=== PATIENT | female | born 1955 | race Caucasian/White ===

== ENCOUNTER → 2016-09-02 | Outpatient (CLI) | payer OTHER ==
[~2016-09-02] MED LIST: ALEVE 220MG220 MG PO; ANTI-DIARRHEAL2 MG PO; BUMEX 1MG TA1 MG/TA1 PO; CENTRUM SILVER1 TA1 PO; CLARITIN 1010 MG/TAB PO; CLARITIN10 MG PO; CLONAZEPAM0.5 MG PO; COUMADIN; CULTURELLE CAP1 EAC1 PO; DETROL LA 2 MG2 MG PO; DETROL LA4 MG PO; DILAUDID 2MG TAB2 MG PO; Detrol LA PO; FLEXERIL10 MG PO; FLEXERIL5 MG PO; HYDROCODONE BIT1 TA8 PO; IMODIUM2 MG PO; KLONOPIN 0.5MG0.5 MG PO; KLOR-CON SPRIN10 MEQ PO; LASIX 20MG TABL20 MG PO; LEXAPRO 10MG10 MG PO; LEXAPRO10 MG PO; LOPERAMIDE HCL2 MG PO; LORATADINE10 MG PO; LORTAB 7.5/5001 TAB; LYRICA; MACROBID 1100 MG/CAP PO; MS CONTIN 115 MG/TAB PO; MULTIPLE VITAMI1 CAP PO; NATURE'S BLE1000 MCG PO; NEXIUM40 MG PO; OXECTA5 MG PO; OXYCODONE5 M1 PO; OXYCONTIN10 MG PO; PEPCID 20MG TAB20 MG PO; PERCR 7.5 PO; PREMARIN .3MG0.3 MG PO; PREMARIN 1.251.25 MG PO; PREMARIN VAG42.5 GM VG; PRILOSEC20 MG PO; PYRIDIUM200 M1 PO; RECLAST5 MG/100 M IV.SOLN; SEE INSTRUCTIONS IT; SEREVENT IH; SEREVENT21 MCG/ACT IH; SINGULAIR 110 MG/TAB PO; SINGULAIR10 MG PO; SOMA350 MG PO; VITAMIN C BUFF500 MG PO; VITAMIN C500 MG PO; VITAMIN D 400400 IU PO; VITAMIN D PO; VITAMIN D5000 IU PO; XALATAN EYE DROPS OU; ZANTAC 150150 MG PO; ZANTAC 7575 MG PO; ZOFRAN 4MG T4 MG/TAB PO; [UNRECOGNIZED DRUG - CODE] IV; [UNRECOGNIZED DRUG - SUPPLY]
== END ==
LOC: MHCPAIN 07:49
DX: G89.29 Other chronic pain (principal); M47.817 Spondylosis without myelopathy or radiculopathy, lumbosacral region; M47.812 Spondylosis without myelopathy or radiculopathy, cervical region; M54.12 Radiculopathy, cervical region; M25.562 Pain in left knee; M25.561 Pain in right knee
CPT/HCPCS: G0463

== ENCOUNTER → 2016-10-03 | Outpatient (CLI) | payer OTHER | LOC: MHCPAIN 09:02 | DX: G89.29 Other chronic pain (principal); M50.90 Cervical disc disorder, unspecified, unspecified cervical region; M54.12 Radiculopathy, cervical region; M25.561 Pain in right knee; M25.562 Pain in left knee | CPT/HCPCS: G0463 ==

== ENCOUNTER → 2016-11-14 | Outpatient (CLI) | payer OTHER | LOC: COL.RAD 12:33 | DX: Z01.89 Encounter for other specified special examinations (principal) ==

== ENCOUNTER 2016-11-19 10:23 | Outpatient (RCR) | payer OTHER | END 2017-02-17 | LOC: MKS.ESL.PT | DX: S39.012A Strain of muscle, fascia and tendon of lower back, initial encounter (principal); R26.9 Unspecified abnormalities of gait and mobility; M17.0 Bilateral primary osteoarthritis of knee; Z96.653 Presence of artificial knee joint, bilateral ==

== ENCOUNTER → 2017-01-26 | Outpatient (CLI) | payer OTHER | LOC: MC.RAD 07:55 | DX: Z12.31 Encounter for screening mammogram for malignant neoplasm of breast (principal); Z98.890 Other specified postprocedural states ==

== ENCOUNTER 2017-04-09 12:30 | Outpatient (RCR) | payer OTHER | END 2017-04-13 14:08 | disposition home or self-care (01) | LOC: WSOT 12:30 | DX: Z47.89 Encounter for other orthopedic aftercare (principal); M25.841 Other specified joint disorders, right hand ==

== ENCOUNTER 2018-02-10 12:45 | Outpatient (RCR) | payer OTHER | END 2018-04-11 | disposition home or self-care (01) | LOC: WSST | DX: R41.3 Other amnesia (principal); F01.50 Vascular dementia, unspecified severity, without behavioral disturbance, psychotic disturbance, mood disturbance, and anxiety ==

== ENCOUNTER → 2018-02-18 | Outpatient (CLI) | payer OTHER | LOC: MC.RAD 07:48 | DX: Z12.31 Encounter for screening mammogram for malignant neoplasm of breast (principal) ==

== ENCOUNTER → 2019-04-15 | Outpatient (CLI) | payer BC | LOC: MC.RAD 07:08 | DX: Z12.31 Encounter for screening mammogram for malignant neoplasm of breast (principal) ==

== ENCOUNTER 2019-05-18 17:56 | Emergency (ER) | payer BC ==
[~2019-05-18] VITALS: Ht 162.6 cm; Wt 76.8 kg
[2019-05-18] MEDS ORDERED: PREMARIN0.45 MG PO (18:12)
[2019-05-18 18:13] VITALS: BP 131/62; PULSE 63; TEMP 98.1
[2019-05-18] MEDS ORDERED: PERCOCET 325 MG1 TA3 PO (18:13)
== END 2019-05-18 20:25 | disposition home or self-care (01) ==
LOC: COL.ER 17:56
DX: I80.01 Phlebitis and thrombophlebitis of superficial vessels of right lower extremity (principal); Z87.891 Personal history of nicotine dependence

== ENCOUNTER → 2019-10-27 | Outpatient (CLI) | payer BC ==
[~2019-10-27] MED LIST changes: +PERCOCET 325 MG1 TA3 PO; +PREMARIN0.45 MG PO
== END ==
LOC: MC.RAD 08:53
DX: N63.20 Unspecified lump in the left breast, unspecified quadrant (principal)

== ENCOUNTER → 2020-04-12 | Outpatient (CLI) | payer BC | LOC: COL.VAS 11:49 | DX: H53.9 Unspecified visual disturbance (principal) ==

== ENCOUNTER → 2020-05-24 | Outpatient (CLI) | payer MEDICARE | LOC: MC.RAD 07:53 | DX: Z12.31 Encounter for screening mammogram for malignant neoplasm of breast (principal) ==

== ENCOUNTER 2020-08-11 07:24 | Emergency (ER) | payer MEDICARE ==
[~2020-08-11] VITALS: Ht 170.2 cm; Wt 75.0 kg
[2020-08-11 07:30] VITALS: TEMP 97.8
[2020-08-11 07:57] LABS: BASO # 0.1 (0.0-0.2); BASO % 1.1 % (0.0-2.0); EOS # 0.2 (0.0-0.7); EOS % 2.5 % (0-4.0); GRAN # 6.4 (1.4-6.5); GRAN % 69.6 % (42.2-75.2); HEMATOCRIT 42.5 % (37.0-47.0); HEMOGLOBIN 13.4 g/dl (12.5-16.0); LYMPH # 1.8 (1.2-3.4); LYMPH % 19.5 % (20.0-51.0); MEAN CELL VOLUME 89 fl (80.0-100.0); MEAN CORPUSCULAR HEMOGLOBIN 28 pg (27.0-31.0); MEAN CORPUSCULAR HGB CONC 32 g/dl (33.0-37.0); MEAN PLATELET VOLUME 9.5 fl (7.4-10.4); MONO # 0.7 (0.1-0.6); PLATELET COUNT 283 K/mm3 (130-400); RED BLOOD COUNT 4.77 M/mm3 (4.10-5.30)
[2020-08-11 08:00] LABS: ALANINE AMINOTRANSFERASE 14 U/L (4-34); ALBUMIN 4.3 gm/dL (3.5-5.0); ALKALINE PHOSPHATASE 102 U/L (50-136); ANION GAP 7 mmol/L (7-16); AST,SGOT 30 U/L (15-37); BILIRUBIN,TOTAL 0.2 mg/dL (0.0-1.0); BLOOD UREA NITROGEN 20 mg/dL (7-17); CALCIUM 9.4 mg/dL (8.4-10.2); CARBON DIOXIDE 30 mmol/L (22-30); CHLORIDE 104 mmol/L (98-107); CREATININE, serum 0.91 (0.52-1.25); GLUCOSE 97 mg/dL (74-106); POTASSIUM 4.1 mmol/L (3.4-5.0); SODIUM 141 mmol/L (137-145)
[2020-08-11 08:11] LABS: TROPONIN-I < 0.012 ng/mL (0.000-0.035)
[2020-08-11 08:44] VITALS: BP 159/83; PULSE 54
== END 2020-08-11 08:44 | disposition home or self-care (01) ==
LOC: COL.ER 07:24
PROVIDERS: Emergency Medicine
DX: R07.89 Other chest pain (principal); R51.9 Headache, unspecified; R06.00 Dyspnea, unspecified; Z87.891 Personal history of nicotine dependence; Z88.2 Allergy status to sulfonamides; Z88.6 Allergy status to analgesic agent
CPT/HCPCS: J7030

== ENCOUNTER 2020-09-13 06:48 | Day surgery (SDC) | payer MEDICARE ==
[2020-09-13] VITALS (9 sets, daily range): BP systolic 134–166; BP diastolic 67–79; PULSE 54–69; TEMP 97.4
[~2020-09-13] VITALS: Ht 170.2 cm; Wt 75.1 kg
[2020-09-13 07:38] LABS: PROTHROMBIN TIME 11.4 SECONDS (9.7-12.8)
[2020-09-13 07:40] LABS: HEMATOCRIT 39.6 % (37.0-47.0); HEMOGLOBIN 12.5 g/dl (12.5-16.0); MEAN CELL VOLUME 88 fl (80.0-100.0); MEAN CORPUSCULAR HEMOGLOBIN 28 pg (27.0-31.0); MEAN CORPUSCULAR HGB CONC 32 g/dl (33.0-37.0); MEAN PLATELET VOLUME 9.4 fl (7.4-10.4); PLATELET COUNT 241 K/mm3 (130-400); REDCELL DISTRIBUTION WIDTH-CV 13.1 % (11.5-14.5)
[2020-09-13 07:41] LABS: PARTIAL THROMBOPLASTIN TIME 36.4 SECONDS (26.0-37.0)
[2020-09-13 07:45] LABS: CALCIUM 9.2 mg/dL (8.4-10.2); POTASSIUM 3.9 mmol/L (3.4-5.0)
[2020-09-13] MEDS ORDERED: CLARITIN 1010 MG/TAB PO (08:29)
[2020-09-13] MEDS ORDERED: PROBIOTIC ACID1 EAC3 PO (08:31)
[2020-09-13] MEDS ORDERED: ZOFRAN 4MG T4 MG/TAB PO (08:31)
[2020-09-13] MEDS ORDERED: PREVACID 15MG15 M1 PO (08:31)
[2020-09-13] MEDS ORDERED: SYSTANE 0.4%-0.1 SOL OP (08:32)
[2020-09-13] MEDS ORDERED: TRIAMCINOLONE A15 G3 TP (08:34)
--- NOTE | 2020-09-13 09:05 | NUR ---
Pt to procedure,report to Jihan French.
[2020-09-13] MEDS ORDERED: IMODIUM 2MG CAPS2 MG PO (09:46)
--- NOTE | 2020-09-13 13:30 | NUR ---
Discharge instructions given to pt.ptverbalizes understanding.INT removed,catheter tip intact.Dressing to right wrist observed clean,dry,intact,soft to touch.Pt escorted out via wheelchair by this nurse.
== END 2020-09-13 13:36 | disposition home or self-care (01) ==
LOC: COL.CAR 06:48
PROVIDERS: Internal Medicine Cardiovascular Disease
DX: I25.10 Atherosclerotic heart disease of native coronary artery without angina pectoris (principal); I08.1 Rheumatic disorders of both mitral and tricuspid valves; I27.20 Pulmonary hypertension, unspecified; I12.9 Hypertensive chronic kidney disease with stage 1 through stage 4 chronic kidney disease, or unspecified chronic kidney disease; N18.30 Chronic kidney disease, stage 3 unspecified; I42.9 Cardiomyopathy, unspecified; G89.4 Chronic pain syndrome; K21.9 Gastro-esophageal reflux disease without esophagitis; M16.10 Unilateral primary osteoarthritis, unspecified hip; Z79.899 Other long term (current) drug therapy; Z87.891 Personal history of nicotine dependence
CPT/HCPCS: C1769; C1887; J0153; J1200; J1644; J2250; J2930; J3010; Q9967

== ENCOUNTER → 2021-01-01 | Outpatient (CLI) | payer MEDICARE ==
[~2021-01-01] MED LIST changes: +IMODIUM 2MG CAPS2 MG PO; +PREVACID 15MG15 M1 PO; +PROBIOTIC ACID1 EAC3 PO; +SYSTANE 0.4%-0.1 SOL OP; +TRIAMCINOLONE A15 G3 TP
== END ==
LOC: COL.RAD 12:18
DX: H93.11 Tinnitus, right ear (principal); I10 Essential (primary) hypertension; E04.1 Nontoxic single thyroid nodule
CPT/HCPCS: Q9967

== ENCOUNTER → 2021-02-01 | Outpatient (CLI) | payer MEDICARE | LOC: COL.PUL 11:43 | DX: E04.1 Nontoxic single thyroid nodule (principal); R06.02 Shortness of breath; Z87.891 Personal history of nicotine dependence | CPT/HCPCS: J7674 ==

== ENCOUNTER → 2021-06-14 | Outpatient (CLI) | payer MEDICARE | LOC: MC.RAD 07:38 | DX: Z12.31 Encounter for screening mammogram for malignant neoplasm of breast (principal) ==

== ENCOUNTER → 2021-11-21 | Outpatient (CLI) | payer MEDICARE | LOC: COL.RAD 11-18 13:30 | DX: E04.1 Nontoxic single thyroid nodule (principal) ==

== ENCOUNTER → 2022-06-26 | Outpatient (CLI) | payer MEDICARE | LOC: MHCPAIN 12:58 | DX: M54.50 Low back pain, unspecified (principal); M25.551 Pain in right hip; M25.552 Pain in left hip; M54.6 Pain in thoracic spine; M25.562 Pain in left knee; M25.561 Pain in right knee | CPT/HCPCS: G0463 ==

== ENCOUNTER → 2022-06-26 | Outpatient (CLI) | payer MEDICARE | LOC: COL.RAD 14:32 | DX: M51.35 Other intervertebral disc degeneration, thoracolumbar region (principal); M51.36 Other intervertebral disc degeneration, lumbar region; M47.816 Spondylosis without myelopathy or radiculopathy, lumbar region ==

== ENCOUNTER → 2022-07-10 | Outpatient (CLI) | payer MEDICARE | LOC: MC.RAD 07:51 | DX: Z12.31 Encounter for screening mammogram for malignant neoplasm of breast (principal) ==

== ENCOUNTER 2022-07-18 07:23 | Day surgery (SDC) | payer MEDICARE ==
[~2022-07-18] VITALS: Ht 170.2 cm; Wt 73.2 kg
[~2022-07-18 07:23] MED LIST changes: -MULTIPLE VITAMI1 CAP PO; +MULTIPLE VITAMI1 TA5 PO
[2022-07-18 07:55] VITALS: BP 105/52; PULSE 46; TEMP 97.9
[2022-07-18] MEDS ORDERED: LIPITOR 40MG TA40 MG PO (08:00)
[2022-07-18] MEDS ORDERED: NORVASC 5MG5 MG/TAB PO (08:00)
[2022-07-18] MEDS ORDERED: BETAMETHASONE D15 G1 TP (08:01)
[2022-07-18] MEDS ORDERED: TOPROL XL 25MG25 MG PO (08:05)
[2022-07-18] MEDS ORDERED: ASPIRIN 81M81 MG/TA2 PO (08:14)
[2022-07-18 09:47] VITALS: BP 116/61; PULSE 63
--- NOTE | 2022-07-18 09:52 | NUR ---
Pt discharged at approx 0950. [facility] her [facility] dressing was dry and intact upon discharge and she did not report any incisional pain or discomfort. her VS remained within normal limits before and after the procedure and she was given discharge instructions. pt verbalized understanding of discharge instructions and follow up appointment. she was free from complaints or concerns at time of discharge.
== END 2022-07-18 09:50 | disposition home or self-care (01) ==
LOC: COL.CAR 07:23
DX: R55 Syncope and collapse (principal)
CPT/HCPCS: C1764

== ENCOUNTER → 2023-06-11 | Outpatient (CLI) | payer MEDICARE ==
[~2023-06-11] MED LIST changes: +ASPIRIN 81M81 MG/TA2 PO; +BETAMETHASONE D15 G1 TP; +CEPHALEXIN500 M1 PO; +LEVAQUIN 5500 MG/TA1 PO; +LIPITOR 40MG TA40 MG PO; +NORVASC 5MG5 MG/TAB PO; +RECLAST5 MG/100 M IV; +TOPROL XL 25MG25 MG PO
== END ==
LOC: MHCPAIN 13:54
DX: M54.50 Low back pain, unspecified (principal); M35.1 Other overlap syndromes; M46.00 Spinal enthesopathy, site unspecified; M70.61 Trochanteric bursitis, right hip; M54.6 Pain in thoracic spine; M25.561 Pain in right knee; M25.562 Pain in left knee; Z96.653 Presence of artificial knee joint, bilateral
CPT/HCPCS: G0463

== ENCOUNTER → 2023-08-20 | Outpatient (CLI) | payer MEDICARE | LOC: MC.RAD 07:30 | DX: Z12.31 Encounter for screening mammogram for malignant neoplasm of breast (principal) ==

== ENCOUNTER → 2023-12-17 | Outpatient (CLI) | payer MEDICARE | LOC: COL.RAD 09:44 | DX: E04.1 Nontoxic single thyroid nodule (principal) ==